=== PATIENT | female | born 1975 | race Caucasian/White ===

== ENCOUNTER 2016-03-13 18:01 | Emergency (ER) | payer BC ==
[~2016-03-13] VITALS: Ht 157.5 cm; Wt 64.5 kg
[2016-03-13 18:59] VITALS: BP 131/83
== END 2016-03-13 18:55 | disposition home or self-care (01) ==
LOC: ED 18:03
DX: S93.691A Other sprain of right foot, initial encounter (principal); W18.40XA Slipping, tripping and stumbling without falling, unspecified, initial encounter; Y92.009 Unspecified place in unspecified non-institutional (private) residence as the place of occurrence of the external cause
CPT/HCPCS: 99282

== ENCOUNTER 2016-07-08 18:57 | Emergency (ER) | payer BC ==
[~2016-07-08] VITALS: Ht 157.5 cm; Wt 64.5 kg
[~2016-07-08 18:57] MED LIST: OTC ALLERGY MED PO; SERT50TA2 PO
--- OUTSIDE RECORDS SUMMARY | 2016-07-08 19:00 | XMS REPORT | Continuity of Care Document ---
Author Author [facility] Address Unknown Phone Unavailable Care Team Providers [employer] Salesperson Name Role Phone MASON DUFF MD PCP [phone] Insurance Providers Payer Name Policy Number Subscriber Name Relationship [facility] [id number] Case Castellanos 01 Advance Directives Directive Response Recorded Date/Time Advanced Directives No 03/13/16 6:11pm Chief Complaint and Reason for Visit Chief Complaint Injury Reason for Visit Injury of foot Problems Active Problems Medical Problem Onset Date Status Injury of foot ~03/13/2016 Acute Medications Current Home Medications Medication Dose Units Route Directions Days/Qty Instructions Start Date Sertraline Hcl 50 Mg 50 Mg ORAL Daily 03/13/16 [Otc Allergy Med] 1 Tab ORAL Daily 03/13/16 Social History Query Response Start Date Stop Date Smoking Status Never smoker Hospital Discharge Instructions No hospital discharge instructions. Plan of Care Discharge Date 03/13/16 6:55pm Disposition 01 HOME OR SELF-CARE Instructions/Education Provided Foot Fracture (DC) Prescriptions See Medication Section Referrals MASON DUFF MD - Additional Instructions/Education Ice and elevation for the next 48 hours. Ibuprofen for the pain. Wear shoes that support the foot when walking. Follow-up as needed with your family physician. Some of your test results may not be complete prior to your leaving the Emergency Department. The Emergency Department is not authorized to give test results over the phone. Please contact the doctor's office listed in this packet of information for your final results. Follow up with your primary care physician or return to the Emergency Department for worsening or worrisome symptoms. * Emergency Department phone number: [phone], x [phone]* MEDICAL RECORD If you need copies of your X-rays, call [phone]. If you need copies of your medical record, including lab results, a signed authorization for release of records will be required. A telephone call for release of Health Information is not allowed. BILLING Billing can sometimes be confusing and frustrating. To help avoid confusion in the future, please take a moment to acquaint yourself with the billing parties for services. SERVICE BILLING [employer] Emergency Room Services [facility] Physician Services [facility] X-rays [facility] Patients will receive bills for services from the appropriate provider. If you have any questions about your [facility] bill, our staff will be happy to assist you. Please call [phone], and ask for the billing department. THANK YOU for choosing [facility] as your emergency care provider! Care Plan and Goals ~~Discharge Care Plan~~ Problem: Contusion, pain to affected area, fall. Goal: Decreased contusion and pain to affected area. Instructions: Apply ice to area for 15-20 minutes every 3-4 hours. Elevate extremity above the level of the heart, if applicable. Splint area with pillow or blanket to any chest/abdomen injuries. Use incentive spirometry as directed. Take at least 10 deep breaths per hour. Take medication(s) as directed. Follow up with regular physician or specialist as directed. Exercise as tolerated or directed by physician. Functional Status No functional status results. Allergies, Adverse Reactions, Alerts No known allergies. Immunizations No immunization records. Vital Signs Acute Vital Signs Vital Response Date/Time Temperature (Fahrenheit) 98.0 03/13/2016 6:59pm Pulse 76 bpm 03/13/2016 6:59pm Respirations 16 03/13/2016 6:59pm Height 5 ft 2 in Weight 142 lb Body Mass Index 26.0 kg/m^2 Results No known relevant diagnostic tests, laboratory data and/or discharge summary. Procedures No known history of procedures. Encounters Encounter Location Arrival/Admit Date Discharge/Depart Date Attending Provider Departed Emergency Room [facility] 03/13/16 6:03pm 03/13/16 6:55pm MASON WALSH MD Recent Diagnosis
[2016-07-08] MEDS ORDERED: SODIUM CHLORIDE FLUSH 3 ML SYR IV PRN (19:20)
[2016-07-08] MEDS ORDERED: diphenhydrAMINE 50 MG/ML INJ (BENADRYL) IV ONE (19:20)
[2016-07-08] MEDS ORDERED: HYDROmorphone 1 MG/ML (DILAUDID) SYRINGE IV ONE (19:20)
[2016-07-08] MEDS ORDERED: SODIUM CHLORIDE FLUSH 10 ML SYR IV PRN (19:20)
[2016-07-08] MEDS ORDERED: METOCLOPRAMIDE 10 MG/2 ML (REGLAN) VIAL IV ONE ×2 (19:20→20:00)
--- NOTE | 2016-07-08 20:09 | Diagnostic Imaging Report ---
PROCEDURE: CT head without contrast. TECHNIQUE: Multiple contiguous axial images were obtained through the brain without the use of intravenous contrast. INDICATION: Headache. FINDINGS: Noncontrast CT scan of the head demonstrates no mass effect, midline shift, hemorrhage or extra-axial fluid collections. The fuller-white matter differentiation appears normal. The ventricles, cortical sulci and basilar cisterns are normal. An air-fluid level is present within the right mastoid air cells with approximately 50% opacification. Mild mucosal thickening is seen within the ethmoid sinuses. The maxillary sinuses are not imaged. The mastoid air cells are clear. IMPRESSION: 1. Normal intracranial contents 2. Sinusitis. Dictated by: Dictated on workstation # [id number]
[2016-07-08] MEDS ORDERED: ONDANSETRON 2 MG/ML (Z0FRAN) 2 ML VIAL IV ONE (20:25)
[2016-07-08] MEDS ORDERED: KETOROLAC 30 MG/ML (TORADOL) 1 ML VIAL IV ONE (20:25)
[2016-07-08] MEDS ORDERED: ED- ONDANSETRON ODT 4 MG (ZOFRAN) 4 TABLETS/BTL PO ONE (20:45)
[2016-07-08] MEDS ORDERED: ONDA4TAB8 PO (20:51)
[2016-07-08] MEDS ORDERED: AMOX500C5 PO (20:51)
[2016-07-08] MEDS ORDERED: NF-TORA10 PO (20:51)
[2016-07-08 21:03] VITALS: BP 116/74
== END 2016-07-08 21:05 | disposition home or self-care (01) ==
LOC: ED 18:58
DX: R51 Headache (principal)
CPT/HCPCS: 70450; 96361; 96374; 96375; 99284; J1170; J1200; J1885; J2405; J2765; J7030; 99283